=== PATIENT | male | born 1995 | race Caucasian/White ===

== ENCOUNTER 2018-01-21 20:55 | Emergency (ER) | payer BC ==
[2018-01-21 21:11] VITALS: BP 125/70; PULSE 86; RESP 16; TEMP 98.7
--- NOTE | 2018-01-21 21:41 | XR ---
EXAMINATION TYPE: XR foot complete LT DATE OF EXAM: 01/21/2018 COMPARISON: NONE HISTORY: Foot and ankle pain TECHNIQUE: 3 views FINDINGS: There is nondisplaced fracture mid shaft of the fourth metatarsal. There is nondisplaced fr acture of the base of the fourth metatarsal. There is no dislocation. Joint spaces are normal. There is a 1.5 cm chip fracture of the anterior lateral cuboidal bone. IMPRESSION: Fractures of the cuboidal bone and fourth metatarsal. No significant displacement.
--- NOTE | 2018-01-21 21:43 | XR ---
EXAMINATION TYPE: XR ankle complete LT DATE OF EXAM: 01/21/2018 COMPARISON: NONE HISTORY: Foot pain and trauma TECHNIQUE: 3 views FINDINGS: Ankle mortise is anatomic. Ankle joint space is normal. I see no fracture of the ankle join t. Talonavicular joint and subtalar joint appear normal. IMPRESSION: Negative left ankle exam.
--- NOTE | 2018-01-21 21:57 | ED ---
General Adult HPI - General Chief complaint: Extremity Injury, Lower Stated complaint: Foot injury Time Seen by Provider: 01/21/18 21:16 Source: patient, RN notes reviewed Mode of arrival: ambulatory Limitations: physical limitation - History of Present Illness Initial comments: 22-year-old male presents to the emergency department for a chief complaint of left foot pain 1 hour. Patient states he fell off a golf cart and it ran over his left foot. Patient did not hit his head. Patient did not sustain any other injuries. Patient denies pain in his ankle, lower leg, knee, or hip. Patient has no other complaints at this time including shortness of breath, chest pain, abdominal pain, nausea or vomiting, headache, or visual changes. - Related Data Previous Rx's Medication Instructions Recorded Acetaminophen-Codeine 300-30mg 1 tab PO Q6H PRN #10 tablet 01/21/18 [Tylenol #3] Ibuprofen [Motrin] 600 mg PO Q8HR PRN #20 tab 01/21/18 Allergies Allergy/AdvReac Type Severity Reaction Status Date / Time No Known Allergies Allergy Verified 01/21/18 21:10 Review of Systems ROS Statement: Those systems with pertinent positive or pertinent negative responses have been documented in the HPI. ROS Other: All systems not noted in ROS Statement are negative. Past Medical History Past Medical History: No Reported History History of Any Multi-Drug Resistant Organisms: None Reported Past Surgical History: No Surgical Hx Reported Past Psychological History: No Psychological Hx Reported Smoking Status: Never smoker Past Alcohol Use History: Occasional Past Drug Use History: None Reported General Exam General appearance: alert, in no apparent distress Head exam: Present: atraumatic, normocephalic, normal inspection Eye exam: Present: normal appearance, PERRL, EOMI. Absent: scleral icterus, conjunctival injection, periorbital swelling ENT exam: Present: normal exam, mucous membranes moist Neck exam: Present: normal inspection, full ROM. Absent: tenderness, meningismus, lymphadenopathy Respiratory exam: Present: normal lung sounds bilaterally. Absent: respiratory distress, wheezes, rales, rhonchi, stridor Cardiovascular Exam: Present: regular rate, normal rhythm, normal heart sounds. Absent: systolic murmur, diastolic murmur, rubs, gallop, clicks Extremities exam: Present: tenderness (Tenderness to the dorsal aspect of the left foot.), normal capillary refill (Refill less than 2 seconds and pedal pulse 2+ in the left lower extremity.), joint swelling (Patient has moderate left foot swelling. Mild ecchymosis noted.), other (Sensation intact in the left lower extremity.). Absent: full ROM (Patient has somewhat limited range of motion of the left ankle. Patient is able to move all digits in the left foot.) Course Vital Signs 01/21/18 21:08 Temperature 98.7 F Pulse Rate 86 Respiratory 16 Rate Blood Pressure 125/70 O2 Sat by Pulse 100 Oximetry Procedures - Procedures Initial comment: Neurovascular intact before splint application Indication: Fracture of fourth metatarsal and cuboid bone in left foot Type: Short leg posterior Wounds: no abrasions or lacerations underneath splint Neurovascular status: patient has sensation and movement of digits extending outside the splint, there is no cyanosis, capillary refill < 2 seconds Follow-up: patient given number for orthopedics and instructed to phone to make an appointment. Patient aware he can return to the Emergency Department if any difficulties. Medical Decision Making - Medical Decision Making 22-year-old male since to the emergency department for a chief complaint of left foot pain. Patient fell off a golf cart and ran over his foot. No pain in the ankle. No head injury. No loss consciousness. No other injuries. On exam patient has moderate swelling of the left foot with mild ecchymosis. Patient has significant tenderness to the dorsal aspect of the left foot. Neurovascular intact. X-ray of the left foot shows a nondisplaced midshaft fracture of fourth metatarsal. There is also a nondisplaced fracture of the base of the fourth metatarsal without dislocation. There is a 1.5 cm chip fracture of the anterior lateral cuboid bone. No significant displacement. Patient was splinted with a posterior short leg splint after icing the foot multiple times. He was given Motrin in the emergency department. He was written a prescription for Motrin for pain and Tylenol 3 for breakthrough pain. He was also written a prescription of crutches and will remain nonweightbearing until he sees orthopedics. Patient was given a copy of the x- ray in the emergency department. He was educated to rest ice and elevate the left foot. He will follow up with primary care in 1-2 days. He will return to the emergency department if he has any other worsening symptoms. Disposition Clinical Impression: Foot fracture, left Disposition: HOME SELF-CARE Condition: Good Instructions: Foot Fracture in Adults (ED) Additional Instructions: Please take Motrin for pain. If pain is severe take Tylenol 3. Rest ice and elevate the left foot. Remain nonweightbearing with crutches. Follow up with orthopedics in one to 2 days. Return to the emergency department if you have any worsening symptoms. Prescriptions: Acetaminophen-Codeine 300-30mg [Tylenol #3] 1 tab PO Q6H PRN #10 tablet PRN Reason: Pain Ibuprofen [Motrin] 600 mg PO Q8HR PRN #20 tab PRN Reason: Pain Is patient prescribed a controlled substance at d/c from ED?: Yes When asked, does pt state using other controlled substances?: No If prescribed controlled substance>3 days was MAPS reviewed?: Prescribed <3 Days If opioid is for acute pain is fill amount 7 days or less?: Yes If Rx opioid, was Start Talking consent form obtained?: Yes Referrals: Severino Booker DO [Doctor of Osteopathic Medicine] - 1-2 days Time of Disposition: 22:39
[2018-01-21] MEDS ORDERED: IBUPROFEN 600 MG TAB PO STA (22:05)
== END 2018-01-21 22:38 | disposition home or self-care (01) ==
LOC: EC 20:55
DX: S92.212A Displaced fracture of cuboid bone of left foot, initial encounter for closed fracture (principal); S92.345A Nondisplaced fracture of fourth metatarsal bone, left foot, initial encounter for closed fracture; V86.99XA Unspecified occupant of other special all-terrain or other off-road motor vehicle injured in nontraffic accident, initial encounter; Y92.39 Other specified sports and athletic area as the place of occurrence of the external cause
CPT/HCPCS: 29515; 99283